=== PATIENT | female | born 1945 | race Caucasian/White ===

== ENCOUNTER 2017-07-29 23:27 | Emergency (ER) | payer OTHER ==
[2017-07-29 23:51] VITALS: BP 157/74; PULSE 78; TEMP 97.9
[2017-07-30] MEDS ORDERED: ONDANSETRON 4 MG/2 ML VIAL IVPUSH STA
--- NOTE | 2017-07-30 | PDOC ---
History of Present Illness - General History Source: Patient Exam Limitations: Other (poor historian) - History of Present Illness Initial Comments: 07/30/17 00:18 The patient is a 71 year old female with an unclear medical history who presents to the ED complaining of dizziness, nausea, and vomiting that began this evening. The patient was doing nothing in particular this evening when she became suddenly dizzy. She subsequently began to experience nausea and multiple episodes of nonbloody nonbilious vomiting. Her dizziness is now resolved but she continues to vomit. The patient denies abdominal pain, constipation, or diarrhea. She denies chest pain, shortness of breath, or diaphoresis. She denies fever, chills, or sick contacts. She denies headache, blurred vision, or paresthesias. She reports she has had similar episodes in the past but is unclear whether she has ever taken medication for this issue. PCP is Dr. Adorno in [place] <Gabrielle Marcus - Last Filed: 07/30/17 02:05> <Maddison Nice - Last Filed: 07/30/17 19:12> - General Chief Complaint: Nausea/Vomiting Stated Complaint: NAUSEA Time Seen by Provider: 07/29/17 23:49 Past History <Gabrielle Marcus - Last Filed: 07/30/17 02:05> - Suicide/Smoking/Psychosocial Hx Smoking History: Never smoked Have you smoked in the past 12 months: No Information on smoking cessation initiated: No Hx Alcohol Use: No Drug/Substance Use Hx: No <Maddison Nice - Last Filed: 07/30/17 19:12> - Past Medical History Allergies/Adverse Reactions: Allergies Allergy/AdvReac Type Severity Reaction Status Date / Time No Known Allergies Allergy Verified 07/29/17 23:50 Home Medications: Ambulatory Orders Multivitamin,Ther and Minerals [Vitamin and Minerals] 1 each PO DAILY 07/30/17 Omeprazole 20 mg PO DAILY 07/30/17 Review of Systems - Review of Systems Able to Perform ROS?: Yes Comments:: 07/30/17 00:21 GENERAL/CONSTITUTIONAL: No fever or chills. HEAD, EYES, EARS, NOSE AND THROAT: No change in vision. No ear pain or discharge. No sore throat. CARDIOVASCULAR: No chest pain or shortness of breath. RESPIRATORY: No cough, wheezing, or hemoptysis. GASTROINTESTINAL: +Nausea, vomiting. No abdominal pain, diarrhea or constipation. GENITOURINARY: No dysuria, frequency, or change in urination. MUSCULOSKELETAL: No joint or muscle swelling or pain. No neck or back pain. SKIN: No rash NEUROLOGIC: +Dizziness. No headache, loss of consciousness, or change in strength/sensation. ENDOCRINE: No increased thirst. No abnormal weight change. HEMATOLOGIC/LYMPHATIC: No anemia, easy bleeding, or history of blood clots. ALLERGIC/IMMUNOLOGIC: No hives or skin allergy. <Gabrielle Marcus - Last Filed: 07/30/17 02:05> *Physical Exam - Vital Signs Last Vital Signs Temp Pulse Resp BP Pulse Ox 97.9 F 78 20 157/74 98 07/29/17 23:50 07/29/17 23:50 07/29/17 23:50 07/29/17 23:50 07/29/17 23:50 - Physical Exam Comments: 07/30/17 00:24 GENERAL: Awake, alert, and fully oriented. Vomiting at bedside. HEAD: No signs of trauma EYES: PERRLA, EOMI, sclera anicteric, conjunctiva clear ENT: Auricles normal inspection, nares patent. Moist mucosa NECK: Normal ROM, supple, no JVD, or masses LUNGS: Breath sounds equal, clear to auscultation bilaterally. No wheezes, and no crackles HEART: Regular rate and rhythm, normal S1 and S2, no murmurs, rubs or gallops ABDOMEN: Soft, nontender, normoactive bowel sounds. No guarding, no rebound. No masses EXTREMITIES: Normal range of motion, no edema. No clubbing or cyanosis. No cords, erythema, or tenderness NEUROLOGICAL: Alert and oriented x 3. Moves all extremities. Face is symmetric. Sensation intact throughout. SKIN: Warm, Dry, normal turgor, no rashes or lesions noted. <Gabrielle Marcus - Last Filed: 07/30/17 02:05> - Vital Signs Last Vital Signs Temp Pulse Resp BP Pulse Ox 97.9 F 78 20 157/74 98 07/29/17 23:50 07/29/17 23:50 07/29/17 23:50 07/29/17 23:50 07/29/17 23:50 <Maddison Nice - Last Filed: 07/30/17 19:12> ED Treatment Course - LABORATORY CBC & Chemistry Diagram: 07/30/17 00:45 07/30/17 00:45 <Gabrielle Marcus - Last Filed: 07/30/17 02:05> - LABORATORY CBC & Chemistry Diagram: 07/30/17 00:45 07/30/17 00:45 <Maddison Nice - Last Filed: 07/30/17 19:12> Medical Decision Making - Medical Decision Making 07/30/17 00:05 71-year-old female brought in by ambulance from her home. The patient is vomiting upon arrival. She states that 40 minutes prior to her arrival, she started to feel extremely dizzy and then had multiple episodes of vomiting. She is alert and oriented 3 and conversant Patient states that she has had an episode of this in the remote past Past medical history of breast cancer PCP DR Adorno in [place] 07/30/17 02:44 pt has no focal neuro deficits plan ct scan head, reassess <Maddison Nice - Last Filed: 07/30/17 19:12> *DC/Admit/Observation/Transfer - Attestations Scribe Attestion: 07/30/17 00:29 Documentation prepared by Gabrielle Marcus, acting as medical claims analyst for Maddison Nice MD. <Gabrielle Marcus - Last Filed: 07/30/17 02:05> <Maddison Nice - Last Filed: 07/30/17 19:12> Diagnosis at time of Disposition: Dizziness - Discharge Dispostion Disposition: HOME Condition at time of disposition: Improved - Referrals Referrals: Mj Saldaña MD [Staff Physician] - - Patient Instructions Printed Discharge Instructions: DI for Vertigo, DI for Dizziness-Nonvertigo Additional Instructions: Activity as tolerated. Stay hydrated. Blood tests and a CT of the head showed no acute abnormalities. Continue your medications as previously prescribed by your physician. You should follow up with your primary doctor as soon as possible regarding today's emergency department visit. Return to the emergency department for any new or concerning symptoms, particularly persistent or worsening dizziness, headache, vision/speech change, weakness, chest pain, persistent vomiting.
[2017-07-30] MEDS ORDERED: MECLIZINE HCL 25 MG TABLET (FP) PO ONE (00:01)
[2017-07-30] MEDS ORDERED: SODIUM CHLORIDE 500 ML IV STA (00:01)
[2017-07-30] MEDS ORDERED: MECLIZINE HCL 25 MG TABLET (FP) ONE (00:12)
[2017-07-30] MEDS ORDERED: ONDANSETRON *ODT* 4 MG TABLET ONE (00:13)
[2017-07-30 00:57] LABS: URINE APPEARANCE SLCLOUDY; URINE BILIRUBIN NEGATIVE (NEGATIVE); URINE BLOOD NEGATIVE (NEGATIVE); URINE COLOR LTYELLOW; URINE GLUCOSE (UA) NEGATIVE (NEGATIVE); URINE KETONE NEGATIVE (NEGATIVE); URINE NITRITE NEGATIVE (NEGATIVE); URINE PROTEIN NEGATIVE (NEGATIVE); URINE UROBILINOGEN NEGATIVE mg/dL (0.2-1.0)
[2017-07-30 00:58] LABS: BASOPHIL 0.5 % (0-2.0); EOSINOPHIL 1.2 % (0-4.5); MCH 29.5 pg (25.7-33.7); MEAN CELL VOLUME 86.7 fl (80-96); MEAN PLT VOLUME 8.9 fl (7.5-11.1); NEUTROPHILS 67.9 % (42.8-82.8); PLATELET COUNT 166 K/MM3 (134-434); RDW 16.2 % (11.6-15.6); WHITE BLOOD COUNT 7.3 K/mm3 (4.0-10.0)
[2017-07-30 01:08] LABS: INR 1.02 (0.82-1.09); PROTHROMBIN TIME (PATIENT) 11.5 SEC (9.98-11.88)
[2017-07-30 01:14] VITALS: BMI 42.6
[2017-07-30 01:20] LABS: ALBUMIN 3.6 g/dl (3.4-5.0); ANION GAP 11 (8-16); BILIRUBIN,TOTAL 0.3 mg/dL (0.2-1.0); CALCIUM 8.7 mg/dL (8.5-10.1); CO2 23 mmol/L (21-32); CREATININE 0.8 mg/dL (0.55-1.02); GLUCOSE,RANDOM 109 mg/dL (74-106); SGOT/AST 15 U/L (15-37); SGPT/ALT 31 U/L (12-78); TOT PROT 7.6 g/dl (6.4-8.2)
[2017-07-30 01:22] LABS: ALK PHOS 100 U/L (45-117); CPK 125 IU/L (26-192); TROPONIN I < 0.02 ng/ml (0.00-0.05)
--- NOTE | 2017-07-30 05:46 | PDOC ---
*Physical Exam - Vital Signs Last Vital Signs Temp Pulse Resp BP Pulse Ox 97.9 F 78 20 157/74 98 07/29/17 23:50 07/29/17 23:50 07/29/17 23:50 07/30/17 01:01 07/29/17 23:50 - Physical Exam Comments: 07/30/17 05:42 Vital signs normal. NEURO: Mental status: The patient is alert and oriented x3. Cranial nerves: Cranial nerves II through XII are intact Motor: The upper extremities are 5 over 5 in all muscle groups. The lower extremities are 5 over 5 in all muscle groups. No pronator drift. Sensation: Sensation is intact to light touch throughout. Cerebellar: [place]-[id number]-fmft is normal in both upper extremities. Heel-knee- lo is normal in both lower extremities. Reflexes: 2+ and symmetric in the upper and lower extremities. Gait: Normal. Heel and toe walking are normal. Tandem gait is normal. ED Treatment Course - LABORATORY CBC & Chemistry Diagram: 07/30/17 00:45 07/30/17 00:45 - ADDITIONAL ORDERS Additional order review: Laboratory Results 07/30/17 07/30/17 07/30/17 00:45 00:45 00:45 PT with INR INR Sodium 142 Potassium 3.8 Chloride 108 H Carbon Dioxide 23 Anion Gap 11 BUN 16 Creatinine 0.8 Creat Clearance w eGFR > 60 Random Glucose 109 H Calcium 8.7 Total Bilirubin 0.3 AST 15 ALT 31 Alkaline Phosphatase 100 Creatine Kinase 125 Troponin I < 0.02 Total Protein 7.6 Albumin 3.6 Urine Color Ltyellow Urine Appearance Slcloudy Urine pH 5.0 Ur Specific [place] 1.020 Urine Protein Negative Urine Glucose (UA) Negative Urine Ketones Negative Urine Blood Negative Urine Nitrite Negative Urine Bilirubin Negative Urine Urobilinogen Negative Blood Type A POSITIVE Antibody Screen Negative 07/30/17 00:45 PT with INR 11.50 INR 1.02 Sodium Potassium Chloride Carbon Dioxide Anion Gap BUN Creatinine Creat Clearance w eGFR Random Glucose Calcium Total Bilirubin AST ALT Alkaline Phosphatase Creatine Kinase Troponin I Total Protein Albumin Urine Color Urine Appearance Urine pH Ur Specific [place] Urine Protein Urine Glucose (UA) Urine Ketones Urine Blood Urine Nitrite Urine Bilirubin Urine Urobilinogen Blood Type Antibody Screen 07/30/17 00:45 RBC 4.68 MCV 86.7 MCHC 34.0 RDW 16.2 H MPV 8.9 Neutrophils % 67.9 Lymphocytes % 23.5 Monocytes % 6.9 Eosinophils % 1.2 Basophils % 0.5 - Medications Given in the ED: ED Medications Discontinued Medications Generic Name Dose Route Start Last Admin Trade Name Mario PRN Reason Stop Dose Admin Sodium Chloride 500 mls @ 500 mls/hr 07/30/17 00:01 07/30/17 00:55 Normal Saline - IV 07/30/17 01:00 500 mls/hr ASDIR STA Administration Meclizine HCl 25 mg 07/30/17 00:01 07/30/17 00:55 Antivert - PO 07/30/17 00:02 25 mg ONCE ONE Administration Ondansetron HCl 4 mg 07/30/17 00:00 07/30/17 00:55 Zofran Injection IVPUSH 07/30/17 00:01 4 mg ONCE STA Administration Medical Decision Making - Medical Decision Making 07/30/17 05:42 Received signout on this 71-year-old female who presented with dizziness and vomiting. Neurological exam was otherwise nonfocal on arrival, blood pressure was slightly elevated at 150 systolic. Patient had similar presentations in the past that spontaneously resolved, labs and a CT of the head showed no acute abnormalities. The patient's symptoms had completely and spontaneously resolved after arrival, she continues to feel well. Patient evaluated with initial physician at bedside, patient feels well is moving independently, is ambulating steadily, and remains neurologically intact with resolution of symptoms and no complaints whatsoever. She wants to go home, but not until morning. Patient was allowed to rest until morning hours when she could return home. *DC/Admit/Observation/Transfer Diagnosis at time of Disposition: Dizziness - Discharge Dispostion Disposition: HOME Condition at time of disposition: Improved - Referrals Referrals: Mj Saldaña MD [Staff Physician] - - Patient Instructions Printed Discharge Instructions: DI for Dizziness-Nonvertigo, DI for Vertigo Additional Instructions: Activity as tolerated. Stay hydrated. Blood tests and a CT of the head showed no acute abnormalities. Continue your medications as previously prescribed by your physician. You should follow up with your primary doctor as soon as possible regarding today's emergency department visit. Return to the emergency department for any new or concerning symptoms, particularly persistent or worsening dizziness, headache, vision/speech change, weakness, chest pain, persistent vomiting. - Post Discharge Activity
[2017-07-30 10:51] LABS: URINE LEUK ESTERASE 1+ (NEGATIVE)
[2017-07-30 12:37] LABS: URINE WBC 30-50 (0-5)
== END 2017-07-30 06:18 | disposition home or self-care (01) ==
LOC: JER 23:27
PROC: 3E033GC Introduction of Other Therapeutic Substance into Peripheral Vein, Percutaneous Approach (ICD-10-PCS; principal; 2017-07-29)
DX: R42 Dizziness and giddiness (principal)
CPT/HCPCS: 36415; 70450-TC; 71010-TC; 80053; 81003; 81015; 82550; 84484; 85025; 85610; 86850; 86900; 86901; 96374; 99284-25